=== PATIENT | female | born 1990 | race Caucasian/White ===

== ENCOUNTER 2016-03-16 03:18 | Emergency (ER) | payer BC ==
[2016-03-16] MEDS ORDERED: NS 1,000 ML IV ONE (03:28)
[2016-03-16 03:30] VITALS: TEMP 98.1; BMI 26.4
[2016-03-16 03:50] LABS: AUTOMATED BASOPHIL 0.7 % (0-2); AUTOMATED EOSINOPHIL 0.6 % (0-5); AUTOMATED LYMPH 30.5 % (17-44); AUTOMATED MONOCYTE 6.4 % (3-10); AUTOMATED NEUTROPHIL 61.8 % (45-76); MPV 8.1 fL (7.4-10.4)
[2016-03-16 03:56] LABS: BLOOD UREA NITROGEN 9 MG/DL (7-17); CALC CORRECTED 9.1 MG/DL (8.4-10.2); CALCIUM 8.8 MG/DL (8.4-10.2); CALCULATED OSMOLALITY 261 MOs/Kg (270-290); CHLORIDE 105 mEq/L (98-107); GLUCOSE 126 MG/DL (70-99); SODIUM LEVEL 135 mEq/L (137-146); TOTAL PROTEIN 6.6 G/DL (6.3-8.2)
[2016-03-16 04:00] LABS: LEUKOCYTES/URINE NEG (NEGATIVE); NITRITE/URINE NEG (NEGATIVE); RBC/URINE 0-2 (0-5); URINE OCCULT BLOOD NEG (NEG/TRACE)
--- NOTE | 2016-03-16 04:21 | EDPRACDOC ---
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 Pt denies any drug use, recent illness or sleep problems, works 3rd shift. Location: Reports: Generalized Pain Quality: Reports: Mild Relevant History of: Denies: Hypertension, Known Headache disorder Associated Signs and Symptoms: Reports: Seizures. Denies: Chronic Headaches, Facial Pain, Fever/Chills, Nausea/Vomiting, Nasal Congestion, Nasal Drainage, Stiff Neck, Vision Changes ED Past Medical History - History Reviewed Yes Nurses notes reviewed and agree except as marked - Patient Medical History Neurological History: Reports: Seizures (2009,02/2013) Psychological History: Denies: Depression Systemic History: Denies: Cancer, Anemia, Lupus Surgical History: Denies: Hysterectomy - Family Medical History Reports: Diabetes (maternal family). Denies: Hypertension, Cancer, Stroke, Cardiac Disorders - Social Medical History Smoking Status: Never smoker EDM Review of Systems - Review of Systems ROS Negative Except as Marked: Yes All systems reviewed and were negative except as marked - Physical Exam Constitutional: Alert (Awake), No apparent distress Oriented to: Time, Person, Place Last recorded Vital Signs: Last Vital Signs Temp 98.1 F 03/16/16 03:26 Pulse 100 03/16/16 03:26 Resp 18 03/16/16 03:26 BP 123/67 03/16/16 03:26 Pulse Ox 97 03/16/16 03:26 Oxygen Pulse Oxygen Saturation 97 O2 Device Oxygen Flow Rate Fraction of Inspired Oxygen ( FIO2) - HEENT Head: Normal ( normocephalic) Eye Exam: Normal (PERRL, EOMI, Sclera white) Oropharynx: Normal (Pharynx:Moist without exudate,Gums-no swelling). negative: Membranes Dry, Red Tympanic Membrane: Normal ENT EAC: Normal Nose: No Symptoms Reported (septum midline) Neck: Normal (FROM, trachea at midline) - Respiratory/Cardiovascular Respiratory: Normal - CTA (BBS clear to auscultation without adventitious sounds ) Cardiovascular: Normal (RRR without murmur, gallop or rub) - GI Auscultation: Normal (NABS) Palpation: Normal (Soft,No rebound or guarding, non distended) Tenderness: Non tender Cordero's Sign: Negative - Musculoskeletal Back: Normal (Non-Tender) Extremities: Normal (Normal tone, Pulses 2+ No cyanosis or edema, FROM) - Integumentary Skin: Normal, Warm, Dry Lymphatics: Normal (no adenopathy) - Neurologic Memory Impaired: Normal Motor Function: Normal (Normal tone, Pulses 2+ No cyanosis or edema, FROM) Cranial Nerve: Normal (CN II-X11 intact sensation, strength 5/5) Cerebellar: Normal Mood Description: Normal Perception: Normal - Re-evaluation Re-evaluation 1 Re-evaluation Time: 05:31 (feeling well, back to baseline, ambulates NAD. plan d/c home f/u JACQUES, no driving. Sz precautions. ) - Results 03/16/16 03:30 03/16/16 03:30 WBC 9.5 xk/uL (3.8-10.8) 03/16/16 03:30 RBC 4.53 xM/uL (4.20-5.40) 03/16/16 03:30 Hgb 13.4 g/dL (12.0-16.0) 03/16/16 03:30 Hct 38.6 % (36-47) 03/16/16 03:30 MCV 85 fL (81-99) 03/16/16 03:30 MCH 29.5 pg (27-32) 03/16/16 03:30 MCHC 34.5 g/dl (33-36) 03/16/16 03:30 RDW 12.7 % (11.5-14.5) 03/16/16 03:30 Plt Count 315 xk/uL (130-400) 03/16/16 03:30 MPV 8.1 fL (7.4-10.4) 03/16/16 03:30 Neut % (Auto) 61.8 % (45-76) 03/16/16 03:30 Lymph % (Auto) 30.5 % (17-44) 03/16/16 03:30 Gillespie % (Auto) 6.4 % (3-10) 03/16/16 03:30 Eos % (Auto) 0.6 % (0-5) 03/16/16 03:30 Baso % (Auto) 0.7 % (0-2) 03/16/16 03:30 Absolute Neuts (auto) 5.80 xk/uL (1.7-8.2) 03/16/16 03:30 Absolute Lymphs (auto) 2.85 xk/uL (0.65-4.75) 03/16/16 03:30 Sodium 135 mEq/L (137-146) L 03/16/16 03:30 Potassium 3.8 mEq/L (3.5-5.1) 03/16/16 03:30 Chloride 105 mEq/L (98-107) 03/16/16 03:30 Carbon Dioxide 21 mMOL/L (22-33) L 03/16/16 03:30 Anion Gap 13 mEq/L (8-16) 03/16/16 03:30 BUN 9 MG/DL (7-17) 03/16/16 03:30 Creatinine 0.80 MG/DL (0.52-1.04) 03/16/16 03:30 Estimated GFR (MDRD) > 60 mL/min (>=60) 03/16/16 03:30 Glucose 126 MG/DL (70-99) H 03/16/16 03:30 Calculated Osmolality 261 MOs/Kg (270-290) L 03/16/16 03:30 Calcium 8.8 MG/DL (8.4-10.2) 03/16/16 03:30 Corrected Calcium 9.1 MG/DL (8.4-10.2) 03/16/16 03:30 Total Bilirubin 0.5 MG/DL (0.2-1.3) 03/16/16 03:30 AST 26 IU/L (14-36) 03/16/16 03:30 ALT 38 IU/L (9-52) 03/16/16 03:30 Alkaline Phosphatase 116 IU/L (38-126) 03/16/16 03:30 Total Protein 6.6 G/DL (6.3-8.2) 03/16/16 03:30 Albumin 3.7 G/DL (3.5-5.0) 03/16/16 03:30 Urine Color Yellow 03/16/16 03:42 Urine Clarity Clear 03/16/16 03:42 Urine pH 6.0 (5.0-8.0) 03/16/16 03:42 Ur Specific [place] 1.025 (1.003-1.035) 03/16/16 03:42 Urine Protein Neg (NEG/TRACE) 03/16/16 03:42 Urine Glucose (UA) Neg (NEGATIVE) 03/16/16 03:42 Urine Ketones Neg (NEGATIVE) 03/16/16 03:42 Urine Occult Blood Neg (NEG/TRACE) 03/16/16 03:42 Urine Nitrite Neg (NEGATIVE) 03/16/16 03:42 Urine Bilirubin Neg (NEGATIVE) 03/16/16 03:42 Urine Urobilinogen <2.0 MG/DL (0-1) 03/16/16 03:42 Ur Leukocyte Esterase Neg (NEGATIVE) 03/16/16 03:42 Urine RBC 0-2 (0-5) 03/16/16 03:42 Ur Epithelial Cells 1+ 03/16/16 03:42 Urine Bacteria Few (NEG/FEW) 03/16/16 03:42 Urine Mucus Mod (NEG/OCC) H 03/16/16 03:42 Urine Test Neg (NEGATIVE) 03/16/16 03:42 Lab Results 03/16/16 03/16/16 03/16/16 03:42 03:42 03:30 WBC 9.5 RBC 4.53 Hgb 13.4 Hct 38.6 MCV 85 MCH 29.5 MCHC 34.5 RDW 12.7 Plt Count 315 MPV 8.1 Neut % (Auto) 61.8 Lymph % (Auto) 30.5 Gillespie % (Auto) 6.4 Eos % (Auto) 0.6 Baso % (Auto) 0.7 Absolute Neuts (auto) 5.80 Absolute Lymphs (auto) 2.85 Sodium Potassium Chloride Carbon Dioxide Anion Gap BUN Creatinine Estimated GFR (MDRD) Glucose Calculated Osmolality Calcium Corrected Calcium Total Bilirubin AST ALT Alkaline Phosphatase Total Protein Albumin Urine Color Yellow Urine Clarity Clear Urine pH 6.0 Ur Specific [place] 1.025 Urine Protein Neg Urine Glucose (UA) Neg Urine Ketones Neg Urine Occult Blood Neg Urine Nitrite Neg Urine Bilirubin Neg Urine Urobilinogen <2.0 Ur Leukocyte Esterase Neg Urine RBC 0-2 Ur Epithelial Cells 1+ Urine Bacteria Few Urine Mucus Mod H Urine Test Neg 03/16/16 03:30 WBC RBC Hgb Hct MCV MCH MCHC RDW Plt Count MPV Neut % (Auto) Lymph % (Auto) Gillespie % (Auto) Eos % (Auto) Baso % (Auto) Absolute Neuts (auto) Absolute Lymphs (auto) Sodium 135 L Potassium 3.8 Chloride 105 Carbon Dioxide 21 L Anion Gap 13 BUN 9 Creatinine 0.80 Estimated GFR (MDRD) > 60 Glucose 126 H Calculated Osmolality 261 L Calcium 8.8 Corrected Calcium 9.1 Total Bilirubin 0.5 AST 26 ALT 38 Alkaline Phosphatase 116 Total Protein 6.6 Albumin 3.7 Urine Color Urine Clarity Urine pH Ur Specific [place] Urine Protein Urine Glucose (UA) Urine Ketones Urine Occult Blood Urine Nitrite Urine Bilirubin Urine Urobilinogen Ur Leukocyte Esterase Urine RBC Ur Epithelial Cells Urine Bacteria Urine Mucus Urine Test - EKG EKG #1 EKG Time: 03:32 -: Yes EKG interpreted by me Rate: bpm: 89 [place]: Normal Rhythm: NSR Block: None Hypertrophy: LVH ST: Nonsp - Diagnostic Imaging Head Image interpreted by: Radiologist Exam(s): [id number] CT/CT HEAD W/O CM CLINICAL DATA: 26-year-old female with seizures EXAM: CT HEAD WITHOUT CONTRAST TECHNIQUE: Contiguous axial images were obtained from the base of the skull through the vertex without intravenous contrast. COMPARISON: Brain MRI dated 10/15/[address] dated 08/06/2009 FINDINGS: The ventricles and the sulci are appropriate in size for the patient's age. There is no intracranial hemorrhage. No midline shift or mass effect identified. The callahan-white matter differentiation is preserved. The visualized paranasal sinuses and mastoid air cells are well aerated. The calvarium is intact. IMPRESSION: No acute intracranial pathology. Electronically Signed By: Humberto Stevens M.D. On: 03/16/2016 05:14 Decision Time to Discharge: 05:32 - Departure Yes I personally saw and evaluated the patient. Disposition: Home Condition: Improved Final Diagnosis: Seizure Instructions: Seizures Education/Counseling Given Regarding: Diagnosis, Treatment, Follow Up Referrals: Bianca Cruz MD [Primary Care Provider] - One Week Additional Instructions: No driving until evaluated by a neurologist. Call today to schedule follow up. [facility] [id number]
--- NOTE | 2016-03-16 05:17 | DIRPT ---
CLINICAL DATA: 26-year-old female with seizures EXAM: CT HEAD WITHOUT CONTRAST TECHNIQUE: Contiguous axial images were obtained from the base of the skull through the vertex without intravenous contrast. COMPARISON: Brain MRI dated 10/15/[address] dated 08/06/2009 FINDINGS: The ventricles and the sulci are appropriate in size for the patient's age. There is no intracranial hemorrhage. No midline shift or mass effect identified. The callahan-white matter differentiation is preserved. The visualized paranasal sinuses and mastoid air cells are well aerated. The calvarium is intact. IMPRESSION: No acute intracranial pathology. Electronically Signed By: Humberto Stevens M.D. On: 03/16/2016 05:14
[2016-03-16 06:31] VITALS: BP 117/56; PULSE 86
== END 2016-03-16 06:31 | disposition home or self-care (01) ==
LOC: ED 03:18
DX: R56.9 Unspecified convulsions (principal)
CPT/HCPCS: 36415; 70450; 80053; 81001; 81025; 85025; 99284